=== PATIENT | female | born 1945 | race Caucasian/White ===

== ENCOUNTER → 2017-01-01 | Outpatient (CLI) | payer MEDICARE, BC ==
[~2017-01-01] MED LIST: ALPRAZOLAM0.25 MG PO; ASPIRIN EC325 MG PO; CELEBREX 200MG200 MG PO; CIPRO 500MG TA500 MG PO; CORGARD20 MG PO; DYAZIDE CAP (M1 EACH PO; IBUPROFEN800 MG PO; LEVOTHYROXIN0.125 MG PO; METOPROLOL 25 M25 MG PO; OMEPRAZOLE20 MG PO; PYRIDIUM100 MG PO; TYLENOL ES500 MG PO; ZOFRAN4 MG PO
[2017-01-01 10:17] LABS: BUN 10 mg/dL (7-18)
[2017-01-01 10:23] LABS: GFR (ESTIMATED) 83 ML/MIN (59-)
[2017-01-02 08:46] LABS: Vitamin D, 25-Hydroxy 25.5 ng/mL (30.0-100.0)
== END ==
LOC: LAB 08:05
PROVIDERS: Internal Medicine Adolescent Medicine
DX: E55.9 Vitamin D deficiency, unspecified (principal); E53.8 Deficiency of other specified B group vitamins; I10 Essential (primary) hypertension